=== PATIENT | male | born 1965 | race Caucasian/White ===

== ENCOUNTER 2024-05-09 14:12 | Emergency (ER) | payer OTHER, SELFPAY ==
[2024-05-09 14:15] VITALS: BP 187/92
[2024-05-09 15:20] VITALS: BMI 32.6
[2024-05-09 18:19] VITALS: BP 151/101
--- NOTE | 2024-05-09 23:44 | ED.GENMED ---
History of Present Illness
General
Chief Complaint: Throat Problem
Source: patient
Exam Limitations: none
Time Seen by Provider: 05/09/24 15:42
Nursing documentation reviewed up to this point in time: agreed with
History of Present Illness
History of Present Illness:
Patient to ED for eval of foreign body sensation to throat. States he is missing one of his dental implants and is concerned that he swallowed it over night Report FB sensation to throat. Advised by dentist to come to ED. No difficulty breathing
or swallowing.
Past History
Past History
ED Past Medical History: HTN and Hypercholesterolemia
Social History
Tobacco: Non-smoker
Alcohol: Occasional
Personal: Single
Living: alone
Employment: Employed
Review of Systems
Review of Systems
Allergies reviewed?: Yes
All Other Systems: ROS reviewed and negative except as documented in HPI and ROS
Constitutional: Reports no symptoms
EENT: Reports other (FB sensation right neck)
Respiratory: Reports no symptoms
Cardiac: Reports no symptoms
ABD/GI: Reports no symptoms
: Reports no symptoms
Musculoskeletal: Reports no symptoms
Skin: Reports no symptoms
Neurological: Reports no symptoms
Psychiatric: Reports no symptoms
Phy Exam
General Physical Exam
General Presentation: well appearing and no apparent distress
General age: appears stated age
General Skin: warm and dry
General Habitus: normal
ENT Exam
ENT Exam: pharynx normal, neck supple, normocephalic and swallowing well
Pulmonary Exam
Pulmonary Exam: lungs clear and no respiratory distress
Musculoskeletal Exam
Musculoskeletal Exam: full ROM and neuro vasc intact
Skin Exam
Skin Exam: normal color, warm/dry and no rash
Psychiatric Exam
Psychiatric Exam: normal mood/affect
Course
Orders/Labs/Results
Orders:
Orders
05/09/24 15:50
Soft Tissue, Neck [CR Soft Tissue Neck ] Urgent
Comment:
Reason For Exam: possible swallowed/stuck implant
05/09/24 17:18
CR Chest - 2 Views Urgent
Comment:
Reason For Exam: FB sensation
Vital Signs
Initial and Last Documented VS:
Initial Vital Signs
Temp Pulse Resp BP Pulse Ox
98.6 F 96 16 187/92 98
05/09/24 14:15 05/09/24 14:15 05/09/24 14:15 05/09/24 14:15 05/09/24 14:15
Last Documented Vital Signs
Temp Pulse Resp BP Pulse Ox
98.6 F 76 16 151/101 96
05/09/24 14:15 05/09/24 18:19 05/09/24 18:19 05/09/24 18:19 05/09/24 18:19
*Radiology
Radiology exam reviewed: radiology read reviewed
*Pulse Oximetry
Patient hypoxic: no
*Critical Care Note
Total Time (30-74mins, 75-104mins- exclusive of procedures): Not Applicable
Update Note
Update Note:
No foreign body detected on xray. He is swallowing without difficulty. No SOB or stridor. Will discharge home, close follow up with PCP. given instructions on s/s to return to ED and he is agreeable to plan.
ED Attending Note
-
Portions of this chart may have been created with voice recognition software.� Occasional wrong word or��sound alike� substitutions may have occurred due to the inherent limitations of voice recognition software.
Discharge Plan
Departure
Patient Disposition: Home (Routine Discharge)
Date of Disposition: 05/09/24
Time of Disposition: 18:11
Patient with high blood pressure during this ER visit?: No
Condition: Good
Covid-19: Not Applicable
Discharge Problem:
Foreign body sensation, throat
Instructions: Swallowed Objects, Adult (DC)
Prescriptions:
No Action
atorvastatin 80 mg tablet
80 mg PO DAILY
aspirin 81 mg Tablet,Delayed Release (Dr/Ec)
81 mg PO DAILY
lisinopril 5 mg tablet
5 mg PO DAILY
metoprolol succinate 25 mg tablet extended release 24 hr
25 mg PO DAILY
tadalafil 5 mg tablet
5 mg PO DAILY
cholecalciferol (vitamin D3) [Vitamin D3] 25 mcg (1,000 unit) Tablet
25 mcg PO DAILY
oxybutynin chloride 5 mg Tablet
5 mg PO Q6HPRN PRN (Reason: frequent urination) Qty: 60 0RF
Referrals:
Krunal Escobar MD [Active] - As needed
Kaleb Cotto CRNP [Family Provider] -
Interventions
Interventions:
*Risk Screen - Suicide Last Done: 05/09/24 14:15
*General Assessment Last Done: 05/09/24 15:20
*Neglect/Abuse Screening Last Done: 05/09/24 14:15
*ED- Fall Risk Assessment Last Done: 05/09/24 15:20
*ED COVID-19 Vaccine History Last Done: 05/09/24 15:20
*Nursing Disposition Last Done: 05/09/24 18:19
ED-EENT Assessment Last Done: 05/09/24 15:36
ED- Pulmonary Assessment Last Done: 05/09/24 15:36
Discharge Date and Time
Discharge Date/Time: 05/09/24 18:20
Print Language: WOLOF
== END 2024-05-09 18:20 | disposition home or self-care (01) ==
LOC: EMR 14:12
PROVIDERS: EMERGENCY PHYSICIAN Emergency Medicine; FAMILY PHYSICIAN Nurse Practitioner Gerontology
DX: R09.A2 Foreign body sensation, throat (principal); I10 Essential (primary) hypertension; E78.00 Pure hypercholesterolemia, unspecified
CPT/HCPCS: 99283; 70360; 71046; 99284

== ENCOUNTER 2024-09-06 06:22 | Day surgery (SDC) | payer OTHER, SELFPAY | END 2024-09-06 13:59 | disposition home or self-care (01) | LOC: GI 06:22 | PROVIDERS: ATTENDING PHYSICIAN Internal Medicine | DX: Z12.11 Encounter for screening for malignant neoplasm of colon (principal); K64.8 Other hemorrhoids; K57.30 Diverticulosis of large intestine without perforation or abscess without bleeding; D12.3 Benign neoplasm of transverse colon; K63.5 Polyp of colon; Z80.0 Family history of malignant neoplasm of digestive organs | CPT/HCPCS: 45380; 88305 ==